=== PATIENT | male | born 1970 | race Caucasian/White ===

== ENCOUNTER 2017-07-22 05:35 | Emergency (ER) | payer SELFPAY ==
[~2017-07-22] VITALS: Ht 182.9 cm; Wt 113.4 kg
[2017-07-22 05:40] VITALS: BP_SYST 146
[2017-07-22 06:33] VITALS: BP_SYST 141
== END 2017-07-22 06:33 | disposition home or self-care (01) ==
LOC: SED 05:35
DX: S40.862A Insect bite (nonvenomous) of left upper arm, initial encounter (principal); S40.861A Insect bite (nonvenomous) of right upper arm, initial encounter; S30.861A Insect bite (nonvenomous) of abdominal wall, initial encounter; L08.9 Local infection of the skin and subcutaneous tissue, unspecified; E11.9 Type 2 diabetes mellitus without complications; I10 Essential (primary) hypertension; W57.XXXA Bitten or stung by nonvenomous insect and other nonvenomous arthropods, initial encounter; Y93.89 Activity, other specified; Y92.89 Other specified places as the place of occurrence of the external cause; Y99.8 Other external cause status
CPT/HCPCS: 99283